=== PATIENT | male | born 1940 | race Caucasian/White ===

== ENCOUNTER 2025-01-16 10:16 | Emergency (ER) | payer MEDICARE, OTHER, SELFPAY ==
[2025-01-16 10:31] VITALS: BP 119/82
--- NOTE | 2025-01-16 11:58 | ED.GENMED ---
History of Present Illness
<KVNG Galan - Last Filed: 01/17/25 06:11>
General
Chief Complaint: Swelling
Source: patient
Exam Limitations: none
Time Seen by Provider: 01/16/25 11:23
Nursing documentation reviewed up to this point in time: agreed with
History of Present Illness
History of Present Illness:
Patient is an 84-year-old male with past medical history of hyperlipidemia hypertension low testosterone anemia presents to the ER for evaluation of swelling to hands and legs for the past week. He has had some issues with shortness of breath
however this is not necessarily new and has not worsened with the lower extremity swelling. He denies any recent illness fever or chills. He was recently on a cruise last week. No prior history of DVT PE. No prior history of heart failure.
Phy Exam
<KVNG Galan - Last Filed: 01/17/25 06:11>
General Physical Exam
General Presentation: no apparent distress
General age: appears stated age
General Skin: warm and dry
General Habitus: normal
General Mental: alert
General Hydration: appears well hydrated
Cardiovascular Exam
Cardiovascular Exam: regular rate/rhythm, no murmur and normal peripheral pulses
Pulmonary Exam
Pulmonary Exam: lungs clear, no respiratory distress and no crackles
Neurological Exam
Neurological Exam: alert and oriented x3
Musculoskeletal Exam
Musculoskeletal Exam: full ROM and other (+ swelling to ankles b/l and lower leg )
Skin Exam
Skin Exam: normal color and warm/dry
Psychiatric Exam
Psychiatric Exam: normal mood/affect
Scores
<Shawn Alvarez PA-C - Last Filed: 01/16/25 16:01>
Heart Failure Risk
Heart Failure Risk Score: Not Applicable
Course
<KVNG Galan - Last Filed: 01/17/25 06:11>
Orders/Labs/Results
Orders:
Orders
01/16/25 10:37
Electrocardiogram (*1) Urgent
Reason for Study: Other
Other Reason for Exam: lower leg swelling
EKG- Treatment ONCE
01/16/25 12:08
Cardiac Monitoring- Treatment ONCE
IV Insert/Care/Rem.- Treatment PRN
CR Chest - 2 Views Urgent
Comment:
Reason For Exam: sob
Venous Doppler Lwr Ext Bilat [US Periph Venous LOWER Ext Seven] Urgent
Comment:
Reason For Exam: swelling
01/16/25 12:40
Complete Blood Count/With Diff Urgent
Comprehensive Metabolic Panel Urgent
NT-proBNP Urgent
01/16/25 14:53
DDimer [D-Dimer] Urgent
Abnormal Lab Results
01/16/25 01/16/25
12:40 14:53
RBC 4.11 L 10^6/uL
(4.70-6.10)
Hgb 12.6 L g/dL
(13.0-18.0)
MCV 97.1 H fL
(80.0-94.0)
MCHC 31.6 L g/dL
(33.0-37.0)
Absolute Lymphs (auto) 0.9 L 10^3/uL
(1.2-3.4)
Neutrophils % 80.3 H %
(42.2-75.2)
Lymphocytes % 10.8 L %
(20.5-51.1)
D-Dimer 0.63 H ug/mlFEU
(0.00-0.50)
Sodium 131 L mmol/L
(135-145)
BUN 21 H mg/dl
(9-20)
Total Protein 6.2 L g/dl
(6.3-8.2)
01/16/25 12:40
01/16/25 12:40
Vital Signs
Initial and Last Documented VS:
Initial Vital Signs
Temp Pulse Resp BP Pulse Ox
98.4 F 58 16 119/82 97
01/16/25 10:31 01/16/25 10:31 01/16/25 10:31 01/16/25 10:31 01/16/25 10:31
Last Documented Vital Signs
Temp Pulse Resp BP Pulse Ox
98.4 F 71 28 131/70 97
01/16/25 10:31 01/16/25 16:00 01/16/25 16:00 01/16/25 15:00 01/16/25 15:30
Citrix Lead consulted with Physician
Citrix Lead consulted with physician?: Yes
Name of Physician Consulted: loi
<Shawn Alvarez PA-C - Last Filed: 01/16/25 16:01>
Orders/Labs/Results
Orders:
Orders
01/16/25 10:37
Electrocardiogram (*1) Urgent
Reason for Study: Other
Other Reason for Exam: lower leg swelling
EKG- Treatment ONCE
01/16/25 12:08
Cardiac Monitoring- Treatment ONCE
IV Insert/Care/Rem.- Treatment PRN
CR Chest - 2 Views Urgent
Comment:
Reason For Exam: sob
Venous Doppler Lwr Ext Bilat [US Periph Venous LOWER Ext Seven] Urgent
Comment:
Reason For Exam: swelling
01/16/25 12:40
Complete Blood Count/With Diff Urgent
Comprehensive Metabolic Panel Urgent
NT-proBNP Urgent
01/16/25 14:53
DDimer [D-Dimer] Urgent
Abnormal Lab Results
01/16/25 01/16/25
12:40 14:53
RBC 4.11 L 10^6/uL
(4.70-6.10)
Hgb 12.6 L g/dL
(13.0-18.0)
MCV 97.1 H fL
(80.0-94.0)
MCHC 31.6 L g/dL
(33.0-37.0)
Absolute Lymphs (auto) 0.9 L 10^3/uL
(1.2-3.4)
Neutrophils % 80.3 H %
(42.2-75.2)
Lymphocytes % 10.8 L %
(20.5-51.1)
D-Dimer 0.63 H ug/mlFEU
(0.00-0.50)
Sodium 131 L mmol/L
(135-145)
BUN 21 H mg/dl
(9-20)
Total Protein 6.2 L g/dl
(6.3-8.2)
01/16/25 12:40
01/16/25 12:40
Vital Signs
Initial and Last Documented VS:
Initial Vital Signs
Temp Pulse Resp BP Pulse Ox
98.4 F 58 16 119/82 97
01/16/25 10:31 01/16/25 10:31 01/16/25 10:31 01/16/25 10:31 01/16/25 10:31
Last Documented Vital Signs
Temp Pulse Resp BP Pulse Ox
98.4 F 71 28 131/70 97
01/16/25 10:31 01/16/25 16:00 01/16/25 16:00 01/16/25 15:00 01/16/25 15:30
<KVNG Galan - Last Filed: 01/17/25 06:11>
MDM/Problems Addressed
Differential Diagnosis Includes:
not limited to: fluid retention, dependent edema, chf
MDM/Problems Addressed:
As documented patient is an 84-year-old male that complains of swelling to his legs and hands for the past week. Patient was on a cruise over a week ago. Sometimes he complains of mild shortness of breath. No chest pain. No cardiac history. He
presents awake alert no acute distress mild swelling on exam however lungs are clear not hypoxic nontachycardic ultrasounds negative bilateral chest x-ray negative for failure ; cardiac BNP normal renal function normal LFTs afebrile. Patient is in
no acute distress nontachycardic no shortness of breath here. Very well-appearing. Possible diet intake of too much sodium on the cruise. Will check a D-dimer though low suspicion for PE and if negative plan for discharge will close the patient
with family doctor.
care of pt at this time signed out to DR Gonzalez.
Chronic conditions affecting care:
htn , hyperlipediemia
<KVNG Galan - Last Filed: 01/17/25 06:11>
*Radiology
Radiology exam reviewed: radiology read reviewed
*Pulse Oximetry
SaO2: 97
Oxygen Mode of Delivery: Room air
Patient hypoxic: no
*EKG
Interpreted by ED Provider?: Yes
Heart Rate: 71
Rate: normal
Rhythm: sinus
Ischemia: no ischemia
<Shawn Alvarez PA-C - Last Filed: 01/16/25 16:01>
*Critical Care Note
Total Time (30-74mins, 75-104mins- exclusive of procedures): Not Applicable
<Shawn Alvarez PA-C - Last Filed: 01/16/25 16:01>
Update Note
Update Note:
Received care of patient upon signout pending D-dimer. D-dimer 0.63 which age-adjusted is within normal limits. Relayed this information. He has an appoint with his family doctor tomorrow. I advised that he follow-up as planned. No indication
for. Stable for discharge
ED Attending Note
<KVNG Galan - Last Filed: 01/17/25 06:11>
-
Portions of this chart may have been created with voice recognition software.� Occasional wrong word or��sound alike� substitutions may have occurred due to the inherent limitations of voice recognition software.
Discharge Plan
Departure
Patient Disposition: Home (Routine Discharge)
Date of Disposition: 01/16/25
Time of Disposition: 16:00
Patient with high blood pressure during this ER visit?: Yes
Condition: Fair
Covid-19: Not Applicable
Discharge Problem:
Edema
Instructions: Dependent Edema (DC), BLOOD PRESSURE
Prescriptions:
No Action
metoprolol succinate [Toprol XL] 25 mg Tablet Extended Release 24 Hr
12.5 mg PO DAILY
atorvastatin [Lipitor] 40 mg Tablet
40 mg PO QPM
Theragen Tablet
1 tab PO DAILY
tamsulosin [Flomax] 0.4 mg Capsule
0.8 mg PO HS
diphenhydramine-acetaminophen [Acetaminophen PM] 25-500 mg Tablet
1 tab PO HSPRN PRN (Reason: sleep)
finasteride 5 mg Tablet
5 mg PO DAILY
testosterone 1 % (50 mg/5 gram) Gel In Packet
1 packet TRANSDERMAL DAILY
fluticasone furoate-vilanterol [Breo Ellipta] 100-25 mcg/dose Blister With Device
1 inh INHALATION R DAILY
Referrals:
Kraig Lawson IV, DO [Family Provider, Family Practice]
Activity Restrictions/Additional Instructions:
Follow up with your family doctor in the next 2 days for reevaluation of your symptoms. Follow a low-salt diet over the next several days as well. Keep your legs elevated. Return if any worsening of symptoms
Interventions
Interventions:
*Risk Screen - Suicide Last Done: 01/16/25 10:31
*General Assessment Last Done: 01/16/25 10:31
*Neglect/Abuse Screening Last Done: 01/16/25 10:31
*ED COVID-19 Vaccine History Last Done: 01/16/25 13:37
*ED Influenza Vaccine History Last Done: 01/16/25 13:37
*Nursing Disposition Last Done: 01/16/25 16:51
ED- Cardiac Assessment Last Done: 01/16/25 14:03
ED- Pulmonary Assessment Last Done: 01/16/25 14:03
Discharge Date and Time
Discharge Date/Time: 01/16/25 16:52
Print Language: SETSWANA
[2025-01-16 12:33] VITALS: BMI 38.0
[2025-01-16 12:48] LABS: Hematocrit 39.9 % (39.0-52.0); Hemoglobin 12.6 g/dL (13.0-18.0); Mean Corp Hgb Conc. 31.6 g/dL (33.0-37.0); Mean Corpuscular Volume 97.1 fL (80.0-94.0); Nucleated Red Blood Cells % 0 % (-); Platelet Count 215 10^3/uL (130-400); Red Cell Dist. Width 14.1 % (11.5-14.5)
[2025-01-16 13:12] LABS: ALT (SGPT) 27 U/L (0-50); AST (SGOT) 37 U/L (17-59); Albumin 3.8 g/dl (3.5-5.0); Alkaline Phosphatase 104 U/L (38-126); Blood Urea Nitrogen 21 mg/dl (9-20); Calcium 8.7 mg/dl (8.4-10.2); Carbon Dioxide 28 mmol/L (22-30); Chloride 100 mmol/L (98-107); Estimated Creatinine Clearance 100 ml/min; Glucose 94 mg/dl (70-99); Potassium 4.6 mmol/L (3.5-5.1); Sodium 131 mmol/L (135-145); Total Protein 6.2 g/dl (6.3-8.2); eGFR > 60.00
[2025-01-16 13:45] VITALS: BP 150/67
[2025-01-16 13:46] VITALS: BP 150/67
[2025-01-16 14:00] VITALS: BP 127/67
[2025-01-16 15:00] VITALS: BP 131/70
[2025-01-16 15:34] LABS: D-Dimer 0.63 ug/mlFEU (0.00-0.50)
== END 2025-01-16 16:52 | disposition home or self-care (01) ==
LOC: EMR 10:16
PROVIDERS: Nurse Practitioner; EMERGENCY PHYSICIAN Emergency Medicine; FAMILY PHYSICIAN Family Medicine
DX: R60.9 Edema, unspecified (principal); E78.00 Pure hypercholesterolemia, unspecified
CPT/HCPCS: 99284; 71046; 80053; 83880; 85025; 85379; 93005; 93970